=== PATIENT | female | born 1965 | race Caucasian/White ===

== ENCOUNTER 2023-04-02 08:00 | Outpatient (CLI) | payer BC, SELFPAY ==
--- NOTE | 2023-04-02 08:15 | CRLHL7_ITS ---
For Patients: As a result of the Century Cures Act, medical imaging exams and procedure reports are released immediately into your electronic medical record. You may view this report before your referring provider. If you have questions, please contact your health care provider. BILATERAL SCREENING MAMMOGRAM WITH COMPUTER-AIDED DETECTION TECHNIQUE: CC and MLO views were obtained. These mammographic images have been obtained using full-field digital technique. These mammographic images were interpreted with the benefit of computer-aided detection. COMPARISON FILM: 10/22/19, 10/15/11. FINDINGS: The breasts are extremely dense, which lowers the sensitivity of mammography. IMPRESSION: There is no radiographic evidence for malignancy. ASSESSMENT: BI-RADS Category 1: Negative RECOMMENDATION: Routine screening mammogram in 1 year. A lay language report of this examination will be provided to the patient. Jordan Puga M.D. Diagnostic Radiologist [email or web address] CHELY/[email or web address] PT/Dictated by: Jordan Puga MD @ 04/02/2023 10:53:00 AM (Electronically Signed)
== END 2023-04-02 08:01 | disposition home or self-care (01) ==
LOC: MAMMO 08:01
PROVIDERS: PCP Family Medicine; Visit Provider Family Medicine
DX: Z12.31 Encounter for screening mammogram for malignant neoplasm of breast (principal); R92.2 Inconclusive mammogram
CPT/HCPCS: 77067

== ENCOUNTER 2024-04-27 13:45 | Outpatient (CLI) | payer BC, SELFPAY ==
--- NOTE | 2024-04-27 14:00 | CRLHL7_ITS ---
For Patients: As a result of the Cures Act, medical imaging exams and procedure reports are released immediately into your electronic medical record. You may view this report before your referring provider. If you have questions, please contact your health care provider. BILATERAL SCREENING MAMMOGRAM WITH COMPUTER-AIDED DETECTION AND TOMOSYNTHESIS TECHNIQUE: CC and MLO views were obtained. These mammographic images have been obtained using full-field digital technique. These mammographic images were interpreted with the benefit of computer-aided detection. Breast Tomosynthesis was used in this interpretation. COMPARISON FILM: 04/02/23, 10/22/19. FINDINGS: The breasts are extremely dense, which lowers the sensitivity of mammography IMPRESSION: There is no radiographic evidence for malignancy. ASSESSMENT: BI-RADS Category 2: Benign RECOMMENDATION: Routine screening mammogram in 1 year. A lay language report of this examination will be provided to the patient. Jordan Puga M.D. Diagnostic Radiologist [email or web address] CHELY/[email or web address] Transcribed: 4:09 p.jami hawkins/Dictated by: Jordan Puga MD @ 04/28/2024 8:57:00 AM (Electronically Signed)
== END 2024-04-27 13:46 | disposition home or self-care (01) ==
LOC: MAMMO 13:45
PROVIDERS: PCP Family Medicine; Visit Provider Family Medicine
DX: Z12.31 Encounter for screening mammogram for malignant neoplasm of breast (principal); R92.2 Inconclusive mammogram
CPT/HCPCS: 77063; 77067

== ENCOUNTER 2024-05-21 08:24 | Outpatient (CLI) | payer BC, SELFPAY | END 2024-05-21 08:25 | disposition home or self-care (01) | LOC: NFLDREF 05-25 22:11 | PROVIDERS: PCP Family Medicine; Referring Provider Family Medicine; Visit Provider Family Medicine | DX: E78.5 Hyperlipidemia, unspecified (principal) | CPT/HCPCS: 80053; 80061 ==

== ENCOUNTER 2024-05-27 08:03 | Outpatient (CLI) | payer BC, SELFPAY ==
--- OUTSIDE RECORDS SUMMARY | 2024-05-27 08:07 | XMS_ITS | Clinical Summary ---
[facility] Address [place], [place] [address] Care Team Providers Care Gaming Commissioner Name Role Phone Jojo Downs Unavailable [phone] France Johnson MD Primary Care Provider + Allergies Active Allergy Reactions Criticality Noted Date Comments Diltiazem Headache 09/10/2019 Medications Medication Sig Dispensed Refills Start Date End Date Status metoprolol tartrate (LOPRESSOR) 25 mg tablet Take 25 mg by mouth. Prn if pulse over 100 Active multivitamin (MVI) tablet Take 1 tablet by mouth once daily. 0 09/10/2019 Active aspirin (ECOTRIN) 81 mg enteric coated tablet 4 tablets by mouth daily 0 09/10/2019 Active varenicline (CHANTIX DOSEPAK) 0.5 mg (11)- 1 mg (42) tablet 01/14/2023 Active Active Problems No known active problems Encounters Date Type Department Care Team Description 05/07/2024 Telephone [facility] [address] [place] [address] Jojo Downs MBBS Results (Holter ) 05/05/2024 4:00 PM CDT Ancillary Procedure [facility] [address] [place] [phone] 05/05/2024 1:51 PM CDT - 05/05/2024 11:59 PM CDT Hospital Encounter [facility] [address] [place] [address] 05/04/2024 10:15 AM CDT Ancillary Procedure [facility] [address] [place] [address] 05/04/2024 Travel 04/27/2024 7:54 AM CDT - 04/27/2024 11:59 PM CDT Hospital Encounter [facility] [address] [place] [address] Jojo Downs MBBS Atrial fibrillation, unspecified type (HC) 04/27/2024 Telephone [facility] [address] [place] [address] Jojo Downs MBBS Results (Echocardiogram ) 04/27/2024 Travel 04/16/2024 Telephone [facility] [address] [place] [address] Jojo Downs MBBS from Last 3 Months Family History Medical History Relation Name Comments Cancer-breast Maternal Grandmother Cancer-breast Sister Relation Name Status Comments Maternal Grandmother (Age 86) Di agnosed at 82 Sister (Age 48) Diagnosed at 46 Social History Tobacco Use Types Packs/Day Years Used Date Smoking Tobacco: Every Day Cigarettes 0.5 20 Smokeless Tobacco: Never Alcohol Use Standard Drinks/Week Comments Yes 0 (1 standard drink = 0.6 oz pur e alcohol) very rare Social Connections Answer Date Recorded Frequency of Communication with Friends and Fami ly Not on file 09/01/2021 Financial Resource Strain Answer Date R ecorded Difficulty of Paying Living Expenses Not on file 09/01/2021 Difficulty of Paying Living Expenses Not on file 09/01/2021 Sex and Gender Information Value Date Recorded Sex Assigned at Not on file Gender Identity Not on file Sexual Orientation Not on file Obstetrics History Last Filed Vital Signs Vital Sign Reading Time Taken Comments Blood Pressure 118/73 01/16/2023 9:25 AM CDT Pulse 79 01/16/2023 9:25 AM CDT Temperature 36.6 ??C (97.9 ??F) 01/16/2023 9:25 AM CD T Respiratory Rate 16 01/16/2023 9:25 AM CDT Oxygen Saturation 96% 01/16/2023 9:25 AM CDT Inhaled Oxygen Concentration - - Weight 64.5 kg (142 lb 1.6 oz) 04/19/2021 9:32 A M CDT Height 167.6 cm (5' 6) 04/19/2021 9:32 AM CDT Body Mass Index 22.94 04/19/2021 9:32 AM CDT Plan of Treatment Upcoming Encounters Date Type Department Care Team (Late st Contact Info) Description 05/28/2024 11:30 AM CDT Office Visit [facility] [address] [place] [phone] Jojo Downs MBBS [address] [place] [address] Health Maintenance Due Date Last Done Comments Tdap 1974 Depression screening for age 12+ 1975 HIV for age 15-65 1978 Hepatitis C screening for ag e 18-79 1981 Tetanus booster 1983 Colonoscopy through age 75 2008 Lipids for age 45-75 2008 Mammogram for age 45-75 10/15/2012 10/15/2011 Zoster (shingles) series for age 50+ (1 of 2) 2013 BMI (ht and wt on same day) for age 18+ 04/19/2022 04/19/2021, 10/05/2019, 09/10/2019 Pap test for age 21-65 07/08/2022 9, 07/08/2019 COVID-19 vaccine series ( season) 2024 12/12/2020, 11/21/2020 Influenza for age 50-64 05/02/2024 Pneumococcal series for age 6-64 Aged Out No longer eligible b ased on patient's age to complete this topic Procedures Procedure Name Priority Date/Time Associated Diagnosis Comments HOLTER MONITOR 24 HOURS Routine 05/07/2024 Atrial fibrillation, unspecified type (HC) ECHO TTE COMPLETE WO CONTRAST Routine 04/27/2024 8:59 AM CDT Atrial fibrillation, unspecified type (HC) CARGO VESSEL STEWARDESS THIN PREP PAP SCREEN IMAGED Routine 07/08/2019 10:50 AM ELEVATOR INSTALLER APPRENTICE XR MAMMO BILAT SCREEN FFDM (IA) Routine 10/15/2011 11:47 AM ELEVATOR INSTALLER APPRENTICE Other screening mammogram from Last 3 Months or Most Recently Relevant to Health Maintenance Results * HOLTER MONITOR 24 HOURS (05/07/2024) Jojo Downs MBBS CARDIAC SERVIC ES ORD * ECHO TTE COMPLETE WO CONTRAST (04/27/2024 8:59 AM CDT) EJECTION FRACTION 55-60% PROSOLV Anatomical Region Laterality Modality Ultrasound 04/27/2024 8:24 AM CDT Narrative 04/27/2024 9:34 AM CDT [address] [address] Main: ? Transthoracic Echo Report BROOK, ABBIE Wilde ID: [id number] Age: 58 : 1965 Ordering Provider: JOJO DOWNS Exam Date: 04/27/2024 08:24 Gender: F Training Development Specialist: MRF Height: 66.1 in BSA: 1.74 m?? BP: 112 / 68 Weight: 143 lbs BMI: 23 kg/m?? HR: 62 Location: [facility] - Outpatient Rhythm: Normal Sinus Rhythm Procedure Components: 2D imaging, Color Doppler, Spectral Doppler Indications: Atrial fibrillation, unspecified type (HC) Technical Quality: Adequate Final Conclusion 1. Normal left ventricular chamber size and systolic function. Estimated left ventricular ejection fraction is 55-60%. 2 .No regional wall motion abnormalities. Normal left ventricular wall thickness. 3. Mild-moderate left atrial enlargement. 4. Mildly thickened leaflets with borderline leaflet ??prolapse. Trivial mitral valve regurgitation. 5. Normal inferior vena cava size with normal inspiratory collapse. There were no prior studies available for comparison. Estimated EF: 55-60% FINDINGS Left Ventricle Normal left ventricular chamber size. Normal left ventricular systolic function. Calculated left ventricular ejection fraction (modified Hdz technique) is 56%. No regional wall motion abnormalities. ??Normal left ventricular wall thickness. Diastolic Function Indeterminate left ventricular diastolic function. Right Ventricle Normal right ventricular chamber size. Normal right ventricular systolic function. Right ventricular systolic pressure cannot be estimated due to inability to detect peak tricuspid regurgitation Doppler velocity. Left Atrium Mild-moderate left atrial enlargement. Left atrial volume index is 41 ml/m??. Right Atrium Normal right atrial size. Atrial Septum No evidence of inter-atrial shunt by color flow Doppler. Aortic Valve Trileaflet aortic valve. Aortic valve sclerosis without stenosis. No aortic valve regurgitation. Mitral Valve Mildly thickened leaflets with borderline leaflet ??prolapse. Mildly calcified mitral annulus. ??No mitral valve stenosis. Trivial mitral valve regurgitation. Tricuspid Valve Normal tricuspid valve. Trivial tricuspid valve regurgitation. Pulmonic Valve Normal pulmonary valve. No pulmonary valve regurgitation. Pericardium No pericardial effusion. Aorta Aortic sinus of Valsalva is normal in size (3.3 cm, ZScore = 0.26). Normal ascending aorta dimension. Inferior Vena Cava Normal inferior vena cava size with normal inspiratory collapse. MEASUREMENTS ??(Male / Female) Normal Values 2D MEASUREMENTS AND LV FUNCTION IVS Diastolic Thickness ? 0.9 cm ?< 1.1 cm / < 1.0 cm LV Diastolic Diameter PLAX ?5 cm ?4.2 - 5.9 / 3.9 - 5.3 cm LV Diastolic Diameter Index ? 2.88 cm/m?? LVPW Diastolic Thickness ?0.9 cm ?< 1.1 cm / < 1.0 cm LV Systolic Diameter PLAX ? 3.3 cm LV Systolic Diameter Index ?1.9 cm/m?? LVOT Diameter ? 2.2 cm LVOT Cardiac Output ? 5.66 l/min LVOT Cardiac Index ?3.24 l/min??m?? LVOT Stroke Volume ?91.2 ml Stroke Volume Index ? 52.2 ml/m?? LV Ejection Fraction MOD BP ? 56.1 % ?>= 55 ??% LA Volume MOD BP ?70.8 ml LA Volume Index MOD BP ?40.7 ml/m?16 - 34 ml/m?? RV Diastolic Basal Diameter ? 3.6 cm RV Diastolic Mid Diameter ? 2.8 cm LV Mass ? 158 g LV Mass Index ? 90.8 g/m?? Sinuses of Valsalva Diameter(d) ?? 3.3 cm Ascending Aorta Diameter(s) ? 3.5 cm Ascending Aorta Index ? 2.01 cm/m?? M MODE TAPSE MM ?2.56 cm DIASTOLOGY Mitral E Point Velocity ? 0.752 m/sec ? 0.70 - 1.02 m/sec Mitral A Point Velocity ? 0.922 m/sec ? 0.06 - 1.06 m/sec Mitral E to A Ratio ? 0.816 ? 1.1 - 2.1 MV Deceleration Time ?240 msec ?167 - 231 msec LV E' Lateral Velocity ?0.0884 m/sec Mitral E to LV E' Lateral Ratio ?? 8.51 LV E' Septal Velocity ? 0.0827 m/sec Mitral E to LV E' Septal Ratio ?9.09 AORTIC VALVE AV Peak Velocity ?1.44 m/sec ?< 2.0 m/sec AV Peak Gradient ?8.29 mmHg AV Mean Gradient ?4 mmHg AV Velocity Time Integral ? 32.3 cm LVOT Peak Velocity ?1.08 m/sec LVOT Velocity Time Integral ? 24 cm AV Area Cont Eq vti ? 2.82 cm?? AV Area Cont Eq pk ?2.85 cm?? AV Dimensionless Index ?0.743 TRICUSPID VALVE AND ESTIMATED PRESSURES Right Atrial Pressure ? 3 mmHg HCM DATA LVOT KAREEM (r) ?4.67 mmHg Aortic Root ZScore: 0.26 Tello Larson MD (Electronically Signed) [facility] Accredited Site Final Date: 27 April 2024 09:34 ICD-10 Codes: I48.91 Procedure Note Tello Larson MD - 04/27/[address], [place] [address] Main: Transthoracic Echo Report ABBIE SIMMONS Kalpeshstephany ID: [id number] Age: 58 : 1965 Ordering Provider: JOJO DOWNS Exam Date: 04/27/2024 08:24 Gender: F Training Development Specialist: MRF Height: 66.1 in BSA: 1.74 m?? BP: 112 / 68 Weight: 143 lbs BMI: 23 kg/m?? HR: 62 Location: [facility] - Outpatient Rhythm: Normal SinusRhythm Procedure Components: 2D imaging, Color Doppler, Spectral Doppler Indications: Atrial fibrillation, unspecified type (HC) Technical Quality: Adequate Final Conclusion 1. Normal left ventricular chamber size and systolic function. Estimatedleft ventricular ejection fraction is 55-60%. 2 .No regional wall motion abnormalities. Normal left ventricular wallthickness. 3. Mild-moderate left atrial enlargement. 4. Mildly thickened leaflets with borderline leaflet prolapse. Trivialmitral valve regurgitation. 5. Normal inferior vena cava size with normal inspiratory collapse. There were no prior studies available for comparison. Estimated EF: 55-60% FINDINGS Left Ventricle Normal left ventricular chamber size. Normal leftventricular systolic function. Calculated left ventricular ejection fraction (modified Hdz technique) is 56%. No regional wall motionabnormalities. Normal left ventricular wall thickness. Diastolic Function Indeterminate left ventricular diastolic function. Right Ventricle Normal right ventricular chamber size. Normal rightventricular systolic function. Right ventricular systolic pressure cannot be estimated due to inability to detect peak tricuspidregurgitation Doppler velocity. Left Atrium Mild-moderate left atrial enlargement. Left atrial volumeindex is 41 ml/m??. Right Atrium Normal right atrial size. Atrial Septum No evidence of inter-atrial shunt by color flow Doppler. Aortic Valve Trileaflet aortic valve. Aortic valve sclerosis withoutstenosis. No aortic valve regurgitation. Mitral Valve Mildly thickened leaflets with borderline leaflet prolapse.Mildly calcified mitral annulus. No mitral valve stenosis. Trivial mitral valve regurgitation. Tricuspid Valve Normal tricuspid valve. Trivial tricuspid valveregurgitation. Pulmonic Valve Normal pulmonary valve. No pulmonary valveregurgitation. Pericardium No pericardial effusion. Aorta Aortic sinus of Valsalva is normal in size (3.3 cm, ZScore = 0.26).Normal ascending aorta dimension. Inferior Vena Cava Normal inferior vena cava size with normal inspiratorycollapse. MEASUREMENTS (Male / Female) Normal Values 2D MEASUREMENTS AND LV FUNCTION IVS Diastolic Thickness 0.9 cm < 1.1 cm / < 1.0cm LV Diastolic Diameter PLAX 5 cm 4.2 - 5.9 / 3.9 -5.3 cm LV Diastolic Diameter Index 2.88 cm/m?? LVPW Diastolic Thickness 0.9 cm < 1.1 cm / < 1.0cm LV Systolic Diameter PLAX 3.3 cm LV Systolic Diameter Index 1.9 cm/m?? LVOT Diameter 2.2 cm LVOT Cardiac Output 5.66 l/min LVOT Cardiac Index 3.24 l/min??m?? LVOT Stroke Volume 91.2 ml Stroke Volume Index 52.2 ml/m?? LV Ejection Fraction MOD BP 56.1 % >= 55 % LA Volume MOD BP 70.8 ml LA Volume Index MOD BP 40.7 ml/m?? 16 - 34 ml/m?? RV Diastolic Basal Diameter 3.6 cm RV Diastolic Mid Diameter 2.8 cm LV Mass 158 g LV Mass Index 90.8 g/m?? Sinuses of Valsalva Diameter(d) 3.3 cm Ascending Aorta Diameter(s) 3.5 cm Ascending Aorta Index 2.01 cm/m?? M MODE TAPSE MM 2.56 cm DIASTOLOGY Mitral E Point Velocity 0.752 m/sec 0.70 - 1.02m/sec Mitral A Point Velocity 0.922 m/sec 0.06 - 1.06m/sec Mitral E to A Ratio 0.816 1.1 - 2.1 MV Deceleration Time 240 msec 167 - 231 msec LV E' Lateral Velocity 0.0884 m/sec Mitral E to LV E' Lateral Ratio 8.51 LV E' Septal Velocity 0.0827 m/sec Mitral E to LV E' Septal Ratio 9.09 AORTIC VALVE AV Peak Velocity 1.44 m/sec < 2.0 m/sec AV Peak Gradient 8.29 mmHg AV Mean Gradient 4 mmHg AV Velocity Time Integral 32.3 cm LVOT Peak Velocity 1.08 m/sec LVOT Velocity Time Integral 24 cm AV Area Cont Eq vti 2.82 cm?? AV Area Cont Eq pk 2.85 cm?? AV Dimensionless Index 0.743 TRICUSPID VALVE AND ESTIMATED PRESSURES Right Atrial Pressure 3 mmHg HCM DATA LVOT KAREEM (r) 4.67 mmHg Aortic Root ZScore: 0.26 Tello Larson MD (Electronically Signed) [facility] Accredited Site Final Date: 27 April 2024 09:34 ICD-10 Codes: I48.91 Jojo Tobi Downs MBBS ECHO ORD * CARGO VESSEL STEWARDESS THIN PREP PAP SCREEN IMAGED (07/08/2019 10:50 AM ELEVATOR INSTALLER APPRENTICE) Case Report Gynecologic Cytology Report ? Case: [id number] ? Authorizing Provider: ??France Johnson MD ??Collected: ? 07/08/2019 1050 ? Ordering Location: ? [facility] ?Received: ?07/09/2019 0859 ? First Screen: ?Paolo Mitchell ? Specimen: ?CARGO VESSEL STEWARDESS ThinPrep Vial Screening, Cervical/Vaginal ? 07/21/2019 1:32 PM ELEVATOR INSTALLER APPRENTICE [facility] INTERPRETATION/ RESULT NEGATIVE FOR INTRAEPITHELIAL LESION OR MALIGNANCY (NIL) (none) 07/21/2019 1:32 PM ELEVATOR INSTALLER APPRENTICE [employer] IMEN ADEQUACY Satisfactory for evaluation Endocervical cells cannot be evaluated due to severe atrophy 07/21/2019 1:32 PM ELEVATOR INSTALLER APPRENTICE [facility] HPV REQUEST HPV and PAP 07/21/2019 1:32 PM ELEVATOR INSTALLER APPRENTICE [facility] Menstrual Status 07/21/2019 1:32 PM ELEVATOR INSTALLER APPRENTICE [facility] Comment:menopause Automated Review Successful 07/21/2019 1:32 PM ELEVATOR INSTALLER APPRENTICE [facility] Comment:Specimen processed s uccessfully by automated hide shaker device, [employer] Network[employer] Imaging System, [employer] ANCILLARY TESTING CARGO VESSEL STEWARDESS HPV Ordered, Please see separate report 07/21/2019 1:32 PM ELEVATOR INSTALLER APPRENTICE [facility] Note The pap test is a screening technique, not a diagnostic procedure. ??It is used primarily to screen for squamous cancers and precursor lesions. ??Published studies have shown that it is subject to both false negative and false positive results. ??The pap test should not be used as the sole means to diagnose or exclude pre-malignant and malignant lesions. Cytology is screened and interpreted at [facility] - [address], [place] [address] and - [address]; [place] [address] [address] [facility] - [address]; [place] [address] and [facility] [address]; [place] [address] 07/21/2019 1:32 PM ELEVATOR INSTALLER APPRENTICE [facility] Other (Cervical/Vagina l) 07/08/2019 10:50 AM ELEVATOR INSTALLER APPRENTICE 07/09/2019 8:59 AM ELEVATOR INSTALLER APPRENTICE France Johnson MD PATHOLOGY/CYTOLO GY [facility] [address] [place] [address], [place] * XR MAMMO BILAT SCREEN FFDM (10/15/2011 11:47 AM ELEVATOR INSTALLER APPRENTICE) Anatomical Region Laterality Modality BREASTS, Breast Left, Breast Right Bilateral Mammography Impressions 10/16/2011 12:34 PM ELEVATOR INSTALLER APPRENTICE ??There is no radiographic evidence for malignancy. ??Recommend annual mammograms. A lay language report of this examination will be provided to the patient. MAMMOGRAM ASSESSMENT: ??ACR 1 Negative Narrative 10/16/2011 12:34 PM ELEVATOR INSTALLER APPRENTICE XR MAMMO BILAT SCREEN FFDM [G0202.0] CLINICAL HISTORY: ??This is an asymptomatic 46 y.o. patient. INDICATION FOR EXAM: Mammogram Screening. TECHNIQUE: CC & MLO views were obtained. ??This digital study was evaluated with the assistance of Computer-Aided Detection. ?? COMPARISON FILM: This is a baseline study. FINDINGS: ??Mammographically, the breast tissue is extremely dense. ??This may lower the sensitivity of mammography (>75% glandular). ??There are no dominant masses, suspicious micro calcifications or areas of architectural distortion. Procedure Note Huang Kent MD - 10/16/2011 XR MAMMO BILAT SCREEN FFDM [G0202.0] CLINICAL HISTORY: This is an asymptomatic 46 y.o. patient. INDICATION FOR EXAM: Mammogram Screening. TECHNIQUE: CC & MLO views were obtained. This digital study was evaluatedwith the assistance of Computer-Aided Detection. COMPARISON FILM: This is a baseline study. FINDINGS: Mammographically, the breast tissue is extremely dense. Thismay lower the sensitivity of mammography (>75% glandular). There are nodominant masses, suspicious micro calcifications or areas of architecturaldistortion. IMPRESSION: There is no radiographic evidence for malignancy. Recommendannual mammograms. A lay language report of this examination will be provided to the patient. MAMMOGRAM ASSESSMENT: ACR 1 Negative Mallory Steinberg MD MAMMO from Last 3 Months or Most Recently Relevant to Health Maintenance Care Teams Gaming Commissioner Relationship Specialty Start Date End Date France Johnson MD [address] [place] [address] PCP - General Family Practice 10/05/19 Jojo Downs MBBS Consulting Physician Cardiovascular Disease 10/05/19
[2024-05-29 03:17] LABS: HPV Source Cervix; HPV, High Risk by TMA Not Detected
== END 2024-05-27 08:04 | disposition home or self-care (01) ==
PROVIDERS: PCP Family Medicine; Visit Provider Family Medicine
DX: Z12.4 Encounter for screening for malignant neoplasm of cervix (principal)
CPT/HCPCS: 87624; 87625; 88141; 88142

== ENCOUNTER 2024-07-22 06:22 | Outpatient (CLI) | payer BC, SELFPAY ==
--- OUTSIDE RECORDS SUMMARY | 2024-07-22 06:25 | XMS_ITS | Clinical Summary ---
Author Organization [employer] [facility] Address [place], [place] [address] Care Team Providers Care Barrel Finisher Name Role Phone Jojo Downs Unavailable + [phone] France Johnson MD Primary Care Provider + [...] (11)- 1 mg (42) tablet 01/14/2023 Active rosuvastatin (CRESTOR) 5 mg tablet 05/27/2024 Act kathy medication order composerIndications:T akes dietary supplements Lecithim supplement once daily 05/28/2024 Active Active Problems No known active problems Encounters Date Type Department Care Team Description 05/31/2024 Orders Only [facility] Scanner 1 scan: (1-Ord) INCOMING RECORDS-LABS, [facility], 05/31/2024 05/28/2024 11:30 AM CDT Office Visit [address] [address] Jojo Downs MBBS Cardiology Appointment (New patient , last saw Dr Downs in 2020/Recent Echo on 04/27/24, Holter 05/07/24); Medication List Update (Patient has not started chantix or crestor yet/ has to citrus picker from pharmacy./Patient has never taken metoprolol, she is questioning if she still needs to have it?) 05/28/2024 Travel 05/07/2024 Telephone [facility] [address] [place] [address] Jojo Downs MBBS Results (Holter ) 05/05/2024 4:00 PM CDT Ancillary Procedure [facility] [address] [place] [address] 05/05/2024 1:51 PM CDT - 05/05/2024 11:59 PM CDT Hospital Encounter [facility] [address] [place] [address] 05/04/2024 10:15 AM CDT Ancillary Procedure [facility] [address] [place] [address] 05/04/2024 Travel 04/27/2024 7:54 AM CDT - 04/27/2024 11:59 PM CDT Hospital Encounter [address] [address] Jojo Downs MBBS Atrial fibrillation, unspecified type (HC) 04/27/2024 Telephone [facility] [address] [place] [address] Jojo Downs MBBS Results (Echocardiogram ) 04/27/2024 Travel from Last 3 Months Family History Medical [...] Sign Reading Time Taken Comments Blood Pressure 134/84 05/28/2024 11:23 AM CDT Pulse 64 05/28/2024 11:23 AM CDT Temperature 36.6 C (97.9 F) 01/16/2023 9:25 AM CDT Respiratory Rate 14 05/28/2024 11:2 3 AM CDT Oxygen Saturation 99% 05/28/2024 11: 23 AM CDT Inhaled Oxygen Concentration - - Weight 67.4 kg (148 lb 11.2 oz) 024 11:23 AM CDT Height 167.6 cm (5' 6) 05/28/2024 11:2 3 AM CDT Body Mass Index 24 05/28/2024 11:23 AM CDT Plan of Treatment Health Maintenance Due Date Last Done Comments Pneumococcal series for age 6-64 (1 of 2 - PCV) 1969 Tdap 1974 Depression screening for age 12+ 1975 HIV for age 15-65 1978 Hepatitis C screening for ag e 18-79 1981 Tetanus booster 1983 Colonoscopy through age 75 2008 Lipids for age 45-75 2008 Mammogram for age 45-75 10/15/2012 10/15/2011 Zoster (shingles) series for age 50+ (1 of 2) 2013 Pap test for age 21-65 07/08/2022 07/08/2019, 2018 COVID-19 vaccine series ( season) 2024 12/12/2020, 11/21/2020 Influenza for age 50-64 05/02/2024 BMI (ht and wt on same day) for age 18+ 05/28/2025 05/28/2024, 04/19/2021, 10/05/2019, Additional history exists Procedures Procedure Name Priority Date/Time Associated Diagnosis Comments SCAN CORRESP-LABORATORY RESULTS 05/31/2024 12:00 AM CDT HOLTER MONITOR 24 HOURS Routine 05/07/2024 Atrial fibrillation, unspecified type (HC) ECHO TTE COMPLETE WO CONTRAST Routine 04/27/2024 8:59 AM CDT Atrial fibrillation, unspecified type (HC) BRANCH BANKER THIN PREP PAP SCREEN IMAGED Routine 07/08/2019 10:50 AM LEVEL VIAL INSPECTOR XR MAMMO BILAT SCREEN FFDM (IA) Routine 10/15/2011 11:47 AM LEVEL VIAL INSPECTOR Other screening mammogram from Last 3 Months or Most Recently Relevant to Health Maintenance Results * SCAN CORRESP-LABORATORY RESULTS (05/31/2024 12:00 AM CDT) Scanner OTHER * HOLTER MONITOR 24 HOURS (05/07/2024) Jojo Downs MBKELIN CARDIAC SERVIC ES ORD * ECHO TTE COMPLETE WO CONTRAST (04/27/2024 8:59 AM CDT) EJECTION FRACTION 55-60% PROSOLV Anatomical Region Laterality Modality Ultrasound 04/27/2024 8:24 AM CDT Narrative 04/27/2024 9:34 AM CDT [address], [place] [address] Main: Transthoracic Echo Report ABBIE SIMMONS Chani ID: [id number] Age: 58 : 1965 Ordering Provider: JOJO DOWNS Exam Date: 04/27/2024 08:24 Gender: F [employer] Molder: MRF Height: 66.1 in BSA: 1.74 m BP: 112 / 68 Weight: 143 lbs BMI: 23 kg/m HR: 62 Location: [facility] - Outpatient Rhythm: Normal Sinus Rhythm [...] Mildly thickened leaflets with borderline leaflet prolapse. Trivial mitral valve regurgitation. 5. Normal inferior vena cava size with normal inspiratory collapse. There were no prior studies available for comparison. Estimated EF: 55-60% FINDINGS Left Ventricle Normal left ventricular chamber size. Normal left ventricular systolic function. Calculated left ventricular ejection fraction (modified Hdz technique) is 56%. No regional wall motion abnormalities. Normal left ventricular wall thickness. Diastolic Function Indeterminate left ventricular diastolic function. Right Ventricle Normal right ventricular chamber size. Normal right ventricular systolic function. Right ventricular systolic pressure cannot be estimated due to inability to detect peak tricuspid regurgitation Doppler velocity. Left Atrium Mild-moderate left atrial enlargement. Left atrial volume index is 41 ml/m . Right Atrium Normal right atrial size. Atrial Septum No evidence of inter-atrial shunt by color flow Doppler. Aortic Valve Trileaflet aortic valve. Aortic valve sclerosis without stenosis. No aortic valve regurgitation. Mitral Valve Mildly thickened leaflets with borderline leaflet prolapse. Mildly calcified mitral annulus. No mitral valve stenosis. [...] cava size with normal inspiratory collapse. MEASUREMENTS (Male / Female) Normal Values 2D MEASUREMENTS AND LV FUNCTION IVS Diastolic Thickness 0.9 cm < 1.1 cm / < 1.0 cm LV Diastolic Diameter PLAX 5 cm 4.2 - 5.9 / 3.9 - 5.3 cm LV Diastolic Diameter Index 2.88 cm/m LVPW Diastolic Thickness 0.9 cm < 1.1 cm / < 1.0 cm LV Systolic Diameter PLAX 3.3 cm LV Systolic Diameter Index 1.9 cm/m LVOT Diameter 2.2 cm LVOT Cardiac Output 5.66 l/min LVOT Cardiac Index 3.24 l/min m LVOT Stroke Volume 91.2 ml Stroke Volume Index 52.2 ml/m LV Ejection Fraction MOD BP 56.1 % >= 55 % LA Volume MOD BP 70.8 ml LA Volume Index MOD BP 40.7 ml/m 16 - 34 ml/m RV Diastolic Basal Diameter 3.6 cm RV Diastolic Mid Diameter 2.8 cm LV Mass 158 g LV Mass Index 90.8 g/m Sinuses of Valsalva Diameter(d) 3.3 cm Ascending Aorta Diameter(s) 3.5 cm Ascending Aorta Index 2.01 cm/m M MODE TAPSE MM 2.56 cm DIASTOLOGY Mitral E Point Velocity 0.752 m/sec 0.70 - 1.02 m/sec Mitral A Point Velocity 0.922 m/sec 0.06 - 1.06 m/sec Mitral E to A Ratio 0.816 1.1 [...] cm AV Area Cont Eq vti 2.82 cm AV Area Cont Eq pk 2.85 cm AV Dimensionless Index 0.743 TRICUSPID VALVE AND ESTIMATED PRESSURES Right Atrial Pressure 3 mmHg HCM DATA LVOT KAREEM (r) 4.67 mmHg Aortic Root ZScore: 0.26 Tello Larson MD (Electronically Signed) [facility] Accredited Site Final Date: 27 April 2024 09:34 ICD-10 Codes: I48.91 Procedure Note Tello Larson MD - 04/27/[address], [place] [address] Main: Transthoracic Echo Report ABBIE SIMMONSstephany ID: [id number] Age: 58 : 1965 Ordering Provider: JOJO DOWNS Exam Date: 04/27/2024 08:24 Gender: F [employer] Molder: BLOSSOM Height: 66.1 in BSA: 1.74 m BP: 112 / 68 Weight: 143 lbs BMI: 23 kg/m HR: 62 Location: [facility] - Outpatient Rhythm: Normal SinusRhythm Procedure [...] atrial enlargement. Left atrial volumeindex is 41 ml/m . Right Atrium Normal right atrial size. Atrial [...] -5.3 cm LV Diastolic Diameter Index 2.88 cm/m LVPW Diastolic Thickness 0.9 cm < 1.1 cm / < 1.0cm LV Systolic Diameter PLAX 3.3 cm LV Systolic Diameter Index 1.9 cm/m LVOT Diameter 2.2 cm LVOT Cardiac Output 5.66 l/min LVOT Cardiac Index 3.24 l/min m LVOT Stroke Volume 91.2 ml Stroke Volume Index 52.2 ml/m LV Ejection Fraction MOD BP 56.1 % >= 55 % LA Volume MOD BP 70.8 ml LA Volume Index MOD BP 40.7 ml/m 16 - 34 ml/m RV Diastolic Basal Diameter 3.6 cm RV Diastolic Mid Diameter 2.8 cm LV Mass 158 g LV Mass Index 90.8 g/m Sinuses of Valsalva Diameter(d) 3.3 cm Ascending Aorta Diameter(s) 3.5 cm Ascending Aorta Index 2.01 cm/m M MODE TAPSE MM 2.56 cm DIASTOLOGY [...] cm AV Area Cont Eq vti 2.82 cm AV Area Cont Eq pk 2.85 cm AV Dimensionless Index 0.743 TRICUSPID VALVE AND ESTIMATED PRESSURES Right Atrial Pressure 3 mmHg HCM DATA LVOT KAREEM (r) 4.67 mmHg Aortic Root ZScore: 0.26 Tello Larson MD (Electronically Signed) [facility] Accredited Site Final Date: 27 April 2024 09:34 ICD-10 Codes: I48.91 Jojo Downs MBBS ECHO ORD * BRANCH BANKER THIN PREP PAP SCREEN IMAGED (07/08/2019 10:50 AM LEVEL VIAL INSPECTOR) Case Report Gynecologic Cytology Report Case: [id number] Authorizing Provider: France Johnson MD Collected: 07/08/2019 1050 Ordering Location: [facility] Received: 07/09/2019 0859 First Screen: Paolo Mitchell Specimen: BRANCH BANKER ThinPrep Vial Screening, Cervical/Vaginal 07/21/2019 1:32 PM LEVEL VIAL INSPECTOR [facility] INTERPRETATION/ RESULT NEGATIVE FOR INTRAEPITHELIAL LESION OR MALIGNANCY (NIL) (none) 07/21/2019 1:32 PM LEVEL VIAL INSPECTOR [facility] IMEN ADEQUACY Satisfactory for evaluation Endocervical cells cannot be evaluated due to severe atrophy 07/21/2019 1:32 PM LEVEL VIAL INSPECTOR [facility] HPV REQUEST HPV and PAP 07/21/2019 1:32 PM LEVEL VIAL INSPECTOR [facility] Menstrual Status 07/21/2019 1:32 PM LEVEL VIAL INSPECTOR [facility] Comment:menopause Automated Review Successful 07/21/2019 1:32 PM LEVEL VIAL INSPECTOR [facility] Comment:Specimen processed s uccessfully by automated party plan sales director device, ThinPrep Imaging System, [employer] ANCILLARY TESTING BRANCH BANKER HPV Ordered, Please see separate report 07/21/2019 1:32 PM LEVEL VIAL INSPECTOR [facility] Note The pap test is a screening technique, not a diagnostic procedure. It is used primarily to screen for squamous cancers and precursor lesions. Published studies have shown that it is subject to both false negative and false positive results. The pap test should not be used as the sole means to diagnose or exclude pre-malignant and malignant lesions. Cytology is screened and interpreted at [facility], Central Laboratory - [address], [place] [address] and [facility] - [address]; [place] [address] and [facility] - [address]; [place] [address] and [facility] [address]; [place] [address] 07/21/2019 1:32 PM LEVEL VIAL INSPECTOR [facility] [employer] LABORATORY-C ENTRAL LABORATORY Other (Cervical/Vagina l) 07/08/2019 10:50 AM LEVEL VIAL INSPECTOR 07/09/2019 8:59 AM LEVEL VIAL INSPECTOR France Johnson MD PATHOLOGY/CYTOLO GY [facility] [address] [place] [address], [place] * XR MAMMO BILAT SCREEN FFDM (10/15/2011 11:47 AM LEVEL VIAL INSPECTOR) Anatomical Region Laterality Modality BREASTS, Breast Left, Breast Right Bilateral Mammography Impressions 10/16/2011 12:34 PM LEVEL VIAL INSPECTOR There is no radiographic evidence for malignancy. Recommend annual mammograms. A lay language report of this examination will be provided to the patient. MAMMOGRAM ASSESSMENT: ACR 1 Negative Narrative 10/16/2011 12:34 PM LEVEL VIAL INSPECTOR XR MAMMO BILAT SCREEN FFDM [G0202.0] CLINICAL HISTORY: This is an asymptomatic 46 y.o. patient. INDICATION FOR EXAM: Mammogram Screening. TECHNIQUE: CC & MLO views were obtained. This digital study was evaluated with the assistance of Computer-Aided Detection. COMPARISON FILM: This is a baseline study. FINDINGS: Mammographically, the breast tissue is extremely dense. This may lower the sensitivity of mammography (>75% glandular). There are no dominant masses, suspicious micro calcifications [...] Recently Relevant to Health Maintenance Care Teams Barrel Finisher Relationship Specialty Start Date End Date France Johnson MD [address] [place] [address] PCP - General Family Practice 10/05/19 Jojo Downs MBBS Consulting Physician Cardiovascular Disease 10/05/19
--- NOTE | 2024-07-22 07:38 | W.ANESCHARGE ---
Anesthesia Charges Start Date/Time Anesthesia Start Date: 07/22/24 Anesthesia Start Time: 07:15 Stop Date/Time Anesthesia Stop Date: 07/22/24 Anesthesia Stop Time: 07:35
--- NOTE | 2024-07-22 08:03 | W.ANESCHARGE ---
Anesthesia Charges Start Date/Time Anesthesia Start Date: 07/22/24 Anesthesia Start Time: 07:15 Stop Date/Time Anesthesia Stop Date: 07/22/24 Anesthesia Stop Time: 07:35
== END 2024-07-22 06:23 | disposition home or self-care (01) ==
LOC: OP CLINIC 06:23
PROVIDERS: PCP Family Medicine; Visit Provider Internal Medicine
DX: Z80.0 Family history of malignant neoplasm of digestive organs (principal)
CPT/HCPCS: 00812; 45378; J2704

== ENCOUNTER 2024-08-17 07:50 | Outpatient (CLI) | payer BC, SELFPAY | END 2024-08-17 07:51 | disposition home or self-care (01) | LOC: NFLDREF 08-18 05:26 | PROVIDERS: PCP Family Medicine; Referring Provider Family Medicine; Visit Provider Family Medicine | DX: E78.5 Hyperlipidemia, unspecified (principal) | CPT/HCPCS: 80061 ==